=== PATIENT | female | born 2000 | race American Indian/Alaskan Native ===

== ENCOUNTER 2021-06-21 23:14 | Emergency (ER) | payer SELFPAY ==
[2021-06-21] MEDS ORDERED: ONDANSETRON 4 MG/2 ML INJ IV ONE (23:23)
[2021-06-21] MEDS ORDERED: SODIUM CHLORIDE 0.9% 1000 ML 1,000 ML IV ONE (23:23)
--- NOTE | 2021-06-21 23:37 | Emergency Department Report ---
<GERALD CRUZ - Last Filed: 06/22/21 01:24> ED Altered Mental Status HPI - General Chief Complaint: Alcohol Stated Complaint: ETOH/AMS Time Seen by Provider: 06/21/21 23:22 Source: EMS Mode of arrival: Stretcher Limitations: Altered Mental Status - History of Present Illness Initial Comments: 21-year-old female presents to ED with altered mental status secondary to EtOH use. Patient [place]. She was apparently celebrating her birthday and had too much to drink. Unknown drug use. Patient is actively vomiting. MD Complaint: altered mental status -: This evening Severity: severe Consistency of Symptoms: constant Context: alcohol abuse - Related Data Allergies Allergy/AdvReac Type Severity Reaction Status Date / Time No Known Allergies Allergy Unverified 06/21/21 23:23 ED Review of Systems Comment: Unobtainable due to pts medical conditions ED Past Medical Hx - Past Medical History Previous Medical History?: No - Surgical History Past Surgical History?: No ED Physical Exam - General Limitations: Altered Mental Status General appearance: appears intoxicated, obtunded - Head Head exam: Present: atraumatic, normocephalic - Eye Eye exam: Present: normal appearance, PERRL, EOMI - ENT ENT exam: Present: mucous membranes moist - Neck Neck exam: Present: normal inspection - Respiratory Respiratory exam: Present: normal lung sounds bilaterally. Absent: respiratory distress - Cardiovascular Cardiovascular Exam: Present: regular rate, normal rhythm - GI/Abdominal GI/Abdominal exam: Present: soft. Absent: distended, tenderness - Extremities Exam Extremities exam: Present: normal inspection - Neurological Exam Neurological exam: Present: other (Patient is obtunded, withdraws from painful stimuli, she is nonverbal at this time) - Psychiatric Psychiatric exam: Present: normal affect, normal mood - Skin Skin exam: Present: warm, dry, intact, normal color - Lab Data Result diagrams: 06/21/21 23:32 06/21/21 23:32 - Radiology Data Radiology results: report reviewed, image reviewed - Medical Decision Making 21-year-old female presents to ED with alcohol intoxication. CT head shows no acute findings. EtOH level is 230. Patient's mental status is somewhat improved. She will now open her eyes when I call her name, however she imm ediately falls back to sleep. She does not respond verbally. Patient will require further observation here in the ED until sober. She will be signed out to Dr. Salamanca for dispo. - Differential Diagnosis EtOH intoxication, drug intoxication ED Disposition Clinical Impression: Altered mental status Acute alcohol intoxication Qualifiers: Complication of substance-induced condition: uncomplicated Qualified Code(s): F10.920 - Alcohol use, unspecified with intoxication, uncomplicated Disposition: 01 HOME / SELF CARE / HOMELESS Condition: Stable Instructions: Binge-Drinking Information, Adult, Alcohol Intoxication, Kuhy-nl-Patk Referrals: PRIMARY CARE, [Referring] - 3-5 Days [facility] [Provider Group] - 3-5 Days <RODRIGO SALAMANCA III - Last Filed: 06/22/21 03:55> ED Review of Systems ROS: Stated complaint: ETOH/AMS Other details as noted in HPI ED Course Vital Signs 06/21/21 06/21/21 06/22/21 23:25 23:56 00:23 Temperature 97.5 F L Pulse Rate 72 56 L Respiratory 14 14 14 Rate Blood Pressure 131/88 116/75 [Right] O2 Sat by Pulse 98 100 100 Oximetry - Reevaluation(s) Reevaluation #1: Patient was signed out to me from previous physician for final disposition and to monitor the patient to sobriety. Patient was monitored for several hours. Patient answering questions appropriately. Patient is alert and oriented x4. Patient ambulatory in the ER. Patient tolerating p.o. intake. Patient patient has a ride and family member that will sign her out. Patient is clinically sober. I discussed all results and clinical findings with patient. I discussed plan of care with patient. Patient agrees with plan of care. Patient is stable for discharge. Patient will be discharged home. Patient given discharge instructions. Patient voiced understanding of discharge instructions. 06/22/21 03:49 - Lab Data Result diagrams: 06/21/21 23:32 06/21/21 23:32 Lab Results 06/21/21 06/21/21 06/21/21 Range/Units 23:32 23:32 23:32 WBC 13.6 H (4.5-11.0) K/mm3 RBC 4.69 (3.65-5.03) M/mm3 Hgb 14.3 (10.1-14.3) gm/dl Hct 42.7 (30.3-42.9) % MCV 91 (79-97) fl MCH 31 (28-32) pg MCHC 34 (30-34) % RDW 14.0 (13.2-15.2) % Plt Count 192 (140-440) K/mm3 Lymph % (Auto) 32.7 (13.4-35.0) % [place] % (Auto) 5.5 (0.0-7.3) % Eos % (Auto) 0.3 (0.0-4.3) % Baso % (Auto) 0.6 (0.0-1.8) % Lymph # (Auto) 4.5 (1.2-5.4) K/mm3 [place] # (Auto) 0.7 (0.0-0.8) K/mm3 Eos # (Auto) 0.0 (0.0-0.4) K/mm3 Baso # (Auto) 0.1 (0.0-0.1) K/mm3 Seg Neutrophils % 60.9 (40.0-70.0) % Seg Neutrophils # 8.3 H (1.8-7.7) K/mm3 Sodium 144 (137-145) mmol/L Potassium 3.4 L (3.6-5.0) mmol/L Chloride 107.8 H (98-107) mmol/L Carbon Dioxide 18 L (22-30) mmol/L Anion Gap 22 mmol/L BUN 11 (7-17) mg/dL Creatinine 0.7 (0.6-1.2) mg/dL Estimated GFR > 60 ml/min BUN/Creatinine Ratio 16 % Glucose 113 H (65-100) mg/dL Calcium 9.6 (8.4-10.2) mg/dL HCG, Qual (Negative) Plasma/Serum Alcohol 0.23 H (0-0.07) % 06/21/21 Range/Units 23:32 WBC (4.5-11.0) K/mm3 RBC (3.65-5.03) M/mm3 Hgb (10.1-14.3) gm/dl Hct (30.3-42.9) % MCV (79-97) fl MCH (28-32) pg MCHC (30-34) % RDW (13.2-15.2) % Plt Count (140-440) K/mm3 Lymph % (Auto) (13.4-35.0) % [place] % (Auto) (0.0-7.3) % Eos % (Auto) (0.0-4.3) % Baso % (Auto) (0.0-1.8) % Lymph # (Auto) (1.2-5.4) K/mm3 [place] # (Auto) (0.0-0.8) K/mm3 Eos # (Auto) (0.0-0.4) K/mm3 Baso # (Auto) (0.0-0.1) K/mm3 Seg Neutrophils % (40.0-70.0) % Seg Neutrophils # (1.8-7.7) K/mm3 Sodium (137-145) mmol/L Potassium (3.6-5.0) mmol/L Chloride (98-107) mmol/L Carbon Dioxide (22-30) mmol/L Anion Gap mmol/L BUN (7-17) mg/dL Creatinine (0.6-1.2) mg/dL Estimated GFR ml/min BUN/Creatinine Ratio % Glucose (65-100) mg/dL Calcium (8.4-10.2) mg/dL HCG, Qual Negative (Negative) Plasma/Serum Alcohol (0-0.07) % Critical care attestation.: If time is entered above; I have spent that time in minutes in the direct care of this critically ill patient, excluding procedure time. ED Disposition Is pt being admited?: No Does the pt Need Aspirin: No Time of Disposition: 03:55
[2021-06-21 23:47] LABS: Basophils # (Auto) 0.1 K/mm3 (0.0-0.1); Basophils % (Auto) 0.6 % (0.0-1.8); Eosinophils % (Auto) 0.3 % (0.0-4.3); Hematocrit 42.7 % (30.3-42.9); Hemoglobin 14.3 gm/dl (10.1-14.3); Lymphocytes # (Auto) 4.5 K/mm3 (1.2-5.4); Lymphocytes % (Auto) 32.7 % (13.4-35.0); Mean Corpuscular HGB Conc 34 % (30-34); Mean Corpuscular Volume 91 fl (79-97); Monocytes # (Auto) 0.7 K/mm3 (0.0-0.8); Monocytes % (Auto) 5.5 % (0.0-7.3); Platelet Count 192 K/mm3 (140-440); Red Blood Count 4.69 M/mm3 (3.65-5.03)
[2021-06-22 00:04] LABS: Blood Urea Nitrogen 11 mg/dL (7-17); Calcium 9.6 mg/dL (8.4-10.2); Hemolysis Index 17
[2021-06-22 00:09] LABS: BUN/Creatinine Ratio 16
--- NOTE | 2021-06-22 00:57 | Cat Scan Report ---
CT head without contrast INDICATION : Altered mental status. TECHNIQUE: Axial imaging performed from the skull apex through the skull base without the use of con trast. All CT examinations performed at this facility utilize dose modulation, iterative reconstruct ion or weight-based dosing, when appropriate, to reduce radiation dose to as low as reasonably achiev able. COMPARISON: None FINDINGS: No acute intracranial hemorrhage or parenchymal abnormality. Ventricles are normal in si ze and appear symmetric. Soft tissues including the orbits appear normal. No acute osseous abnorm ality. Sinuses and mastoid air cells are clear. IMPRESSION: No acute abnormality. Signer Name: Miguel Ángel Holloway MD Signed: 06/22/2021 12:52 AM Workstation Name: [id number]
[2021-06-22 04:11] VITALS: BP 115/73
== END 2021-06-22 04:12 | disposition home or self-care (01) ==
LOC: ED 23:14
DX: R41.82 Altered mental status, unspecified (principal); F10.129 Alcohol abuse with intoxication, unspecified; Y90.9 Presence of alcohol in blood, level not specified
CPT/HCPCS: 36415; 70450; 80048; 84703; 85025; 96361; 96374; 99285; J2405; J7030; 80320; G0480